=== PATIENT | female | born 2000 | race Caucasian/White ===

== ENCOUNTER 2022-06-30 17:39 | Emergency (ER) | payer OTHER, BC ==
[~2022-06-30] VITALS: Ht 172.7 cm; Wt 95.3 kg
[2022-06-30 17:52] VITALS: BP_SYST 135
--- NOTE | 2022-06-30 17:57 | NUR ---
Patient to ER bed 03 to gown for evaluation. Side rails up. Report given to OMAIRA Rosales
--- NOTE | 2022-06-30 17:58 | NUR ---
BIB SELF FROM WORK WITH C/O LEFT THUMB LACERATION. PT STATES HE WAS AT WORKING WHEN HE CUT HIMSELF WITH A KNIFE. PT WAS BLEEDING PROFUSELY. HX - N/A PT IS AAX04, NAD, VSS, BREAHTING IS EVEN AND UNLABORED ON RA. PT DENIES N/V/D. SAFETY PRECAUTIONS AND COMFORT MEASURES ARE IN PLACE. PENDING MD [place] AND ORDERS.
--- NOTE | 2022-06-30 17:59 | NUR ---
DEONDRE Rey at bedside examining patient.
[2022-06-30] MEDS ORDERED: KETOROLAC TROMETHAMINE 60 MG/2 ML VIAL IM ONE (18:30)
[2022-06-30] MEDS ORDERED: BACITRACIN 1 GM OINT TP ONE (18:45)
[2022-06-30] MEDS ORDERED: IBUP-1971 PO (18:47)
[2022-06-30] MEDS ORDERED: CEPH-548 PO (18:47)
[2022-06-30] MEDS ORDERED: HYDR-3917 PO (18:47)
--- NOTE | 2022-06-30 18:54 | NUR ---
PT IS MEDICALLY FOR D/C. D/C INSTRUCTIONS GIVEN TO PT. PT TO FOLLOW-UP WITH PCP WITHIN 1-3 DAYS AND TO RETURN TO ED FOR WORSENING S/S. PT VERBALIZED UNDERSTANDING. PT IS AAOX4, NAD, VSS, WRISTBAND REMOVED. PT AMBULATORY WITH STEADY GAIT. PT LEFT ED WITH ALL BELONGINGS.
[2022-06-30 18:57] VITALS: BP_SYST 131
== END 2022-06-30 18:54 | disposition home or self-care (01) ==
LOC: SED 17:39
DX: S61.112A Laceration without foreign body of left thumb with damage to nail, initial encounter (principal); Z79.899 Other long term (current) drug therapy; W22.09XA Striking against other stationary object, initial encounter; Y93.89 Activity, other specified; Y92.89 Other specified places as the place of occurrence of the external cause; Y99.8 Other external cause status
CPT/HCPCS: 99283; 96372; J1885